=== PATIENT | female | born 1990 | race Caucasian/White ===

== ENCOUNTER 2016-10-11 14:50 | Emergency (ER) | payer SELFPAY ==
[2016-10-11 15:40] VITALS: RESP 16; TEMP 98.4
--- NOTE | 2016-10-11 16:01 | DI ---
XR WRIST COMPLETE MIN 3VW,10/11/2016 3:02 PM: Clinical History: Status post fall Previous Exam: None at this facility. Findings: 3 views of the left wrist are obtained, and demonstrate anatomic alignment without fractures. Surroun ding soft tissues are unremarkable. Impression: No fracture. Note: If pain persists or worsens, recommend followup imaging in 7-10 days to rule out an occult frac ture.
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
== END 2016-10-11 16:15 | disposition home or self-care (01) ==
LOC: ER 14:50
DX: S63.502A Unspecified sprain of left wrist, initial encounter (principal); W01.0XXA Fall on same level from slipping, tripping and stumbling without subsequent striking against object, initial encounter
CPT/HCPCS: 29130; 73110; 99282; 99283

== ENCOUNTER 2017-12-21 02:22 | Inpatient (IN) ==
[2017-12-21] MEDS ORDERED: ONDANSETRON 4 MG/2 ML VIAL IVP ONE (02:39)
[2017-12-21] MEDS ORDERED: MORPHINE SULFATE 2 MG/1 ML IVP ONE (02:39)
[2017-12-21] MEDS ORDERED: Sodium Chloride 0.9% 1,000 ML PRIMARY IV ONE (02:39)
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
[2017-12-21 02:51] VITALS: RESP 20
[2017-12-21 03:16] LABS: BASOPHILS # (AUTO) 0.04 10*3/UL; BASOPHILS % (AUTO) 0.2 % (0-1); EOSINOPHILS # (AUTO) 0.06 10*3/UL; EOSINOPHILS % (AUTO) 0.4 % (0-8); Hematocrit [HCT] 42.3 % (37.0-47.0); LYMPHOCYTES # (AUTO) 3.26 10*3/uL; MEAN CORPUSCULAR HEMOGLOBIN 30.9 PG (27-31); MEAN CORPUSCULAR HGB CONC 35.5 g/dL (33-37); MEAN CORPUSCULAR VOLUME 87.2 FL (81-99); MEAN PLATELET VOLUME 9.6 FL (7.4-12.2); MONOCYTES # (AUTO) 1.21 10*3/UL (0.3-0.8); MONOCYTES % (AUTO) 7.4 % (5-15); NEUTROPHILS # (AUTO) 11.84 10*3/UL; NEUTROPHILS % (AUTO) 71.9 % (50-80); RED BLOOD COUNT 4.85 10^6/uL (4.20-5.40)
[2017-12-21 03:21] LABS: PLATELET MORPHOLOGY COMMENT NORMAL MORPHOLOGY (NORM); RBC MORPHOLOGY COMMENT NORMAL MORPHOLOGY (NORM); WBC MORPHOLOGY COMMENT NORMAL MORPHOLOGY (NORM)
[2017-12-21 03:25] LABS: BLOOD UREA NITROGEN 8 mg/dL (7-22); BUN/CREATININE RATIO 11.42 (6-20); LIPASE 141 IU/L (23-300); SERUM ALBUMIN 4.8 g/dL (3.5-4.8)
[2017-12-21] MEDS ORDERED: MORPHINE SULFATE 4 MG/1 ML IVP ONE (04:12)
--- NOTE | 2017-12-21 04:26 | DI ---
EXAM: CT Abdomen and Pelvis With Intravenous Contrast CLINICAL HISTORY: Right upper quadrant abdominal pain TECHNIQUE: Axial computed tomography images of the abdomen and pelvis with intravenous contrast. COMPARISON: 08/04/2012 FINDINGS: Lung bases: Unremarkable. No mass. No consolidation. ABDOMEN: Liver: Unremarkable. No mass. Gallbladder and bile ducts: The gallbladder is mildly distended. No calcified stones. No ductal dilation. Pancreas: Unremarkable. No mass. No ductal dilation. Spleen: Unremarkable. No splenomegaly. Adrenals: Unremarkable. No mass. Kidneys and ureters: Unremarkable. No solid mass. No hydronephrosis. Stomach and bowel: Unremarkable. No obstruction. No mucosal thickening. PELVIS: Appendix: A normal caliber appendix is noted in the right lower quadrant. Bladder: Unremarkable. No mass. Reproductive: There is been interval hysterectomy when compared to previous exam. ABDOMEN and PELVIS: Intraperitoneal space: Unremarkable. No free air. No significant fluid collection. Bones/joints: No acute fracture. No dislocation. Soft tissues: Unremarkable. Vasculature: Unremarkable. No abdominal aortic aneurysm. Lymph nodes: Unremarkable. No enlarged lymph nodes. IMPRESSION: Negative CT examination of the abdomen and pelvis without identifiable CT findings to suggest the cause of the patient's clinical symptoms.
[2017-12-21 04:54] LABS: BILIRUBIN,URINE NEGATIVE (NEG); CLARITY,URINE CLEAR (CLEAR); COLOR,URINE YELLOW (Y); GLUCOSE, URINE (UA) NEGATIVE (NEG); OCCULT BLOOD,URINE Trace-intact (NEG); PROTEIN,URINE TRACE mg/dl (NEG); UROBILINOGEN,URINE 0.2 EU/dL (0.2)
[2017-12-21 05:00] LABS: BACTERIA,URINE FEW; SQUAMOUS EPITHELIAL CELL,UR MANY; URINE SAMPLE TYPE CLEAN CATCH URINE; URINE SPECIFIC GRAVITY - MAN > 1.050
[2017-12-21 05:01] LABS: OPIATE SCREEN,URINE POSITIVE (NEG)
[2017-12-21 05:02] LABS: AMPHETAMINE SCREEN POSITIVE (NEG); CANNABINOID SCREEN,URINE POSITIVE (NEG); COCAINE SCREEN NEGATIVE (NEG); METHADONE URINE SCREEN NEGATIVE (NEG); METHAMPHETAMINES SCREEN,URINE POSITIVE (NEG)
[2017-12-21] MEDS ORDERED: HYDROmorphone 2 MG/1 ML IVP ONE (05:15)
[2017-12-21] MEDS ORDERED: Ertapenem Inj 1 GM in Sodium Chloride 0.9% 100 ML IV ONE (05:20)
[2017-12-21] MEDS ORDERED: HYDROmorphone 2 MG/1 ML IVP PRN (05:48)
[2017-12-21] MEDS ORDERED: Sodium Chloride 0.9% 1,000 ML PRIMARY IV SCH (06:00)
[2017-12-21] MEDS: MORPHINE SULFATE 2 MG/1 ML IVP PRN ×2 (08:03→09:59)
--- NOTE | 2017-12-21 08:10 | DI ---
US Abdomen Complete,12/21/2017 5:48 AM: Clinical History: Cholecystitis. Previous Exam: CT abdomen pelvis performed December 21, 2017 . Findings: multiple grayscale and color Doppler sonographic images obtained through the abdomen, and demonstrate normal hepatic parenchyma. The right kidney measures 10.7 cm in length without hydronephrosis nor nephrolithiasis. The gallbladder appears grossly normal the gallbladder wall measuring 2 mm and no visible stone. The common bile duct measures 3 mm. The spleen is normal measuring 10 cm in long axis. The left kidney is also normal measuring 12.4 cm in length without hydronephrosis nor nephrolithiasis Impression: No acute disease.
[2017-12-21 09:21] LABS: BASOPHILS # (AUTO) 0.02 10*3/UL; BASOPHILS % (AUTO) 0.1 % (0-1); EOSINOPHILS # (AUTO) 0.14 10*3/UL; Hematocrit [HCT] 40.7 % (37.0-47.0); Hemoglobin [HGB] 14.2 g/dL (12.0-16.0); LYMPHOCYTES # (AUTO) 2.91 10*3/uL; MEAN CORPUSCULAR HEMOGLOBIN 30.7 PG (27-31); MEAN CORPUSCULAR HGB CONC 34.9 g/dL (33-37); MEAN CORPUSCULAR VOLUME 88.1 FL (81-99); MEAN PLATELET VOLUME 9.4 FL (7.4-12.2); MONOCYTES # (AUTO) 0.94 10*3/UL (0.3-0.8); MONOCYTES % (AUTO) 6.9 % (5-15); NEUTROPHILS # (AUTO) 9.65 10*3/UL; NEUTROPHILS % (AUTO) 70.5 % (50-80); RED BLOOD COUNT 4.62 10^6/uL (4.20-5.40)
[2017-12-21 09:25] LABS: PLATELET MORPHOLOGY COMMENT NORMAL MORPHOLOGY (NORM); RBC MORPHOLOGY COMMENT NORMAL MORPHOLOGY (NORM); WBC MORPHOLOGY COMMENT NORMAL MORPHOLOGY (NORM)
--- NOTE | 2017-12-21 09:56 | CONSULT ---
Consult Note - Consult Consult Date: 12/21/17 Reason for Consult: PreOp Consulation : General Surgery Requesting Physician: Dr. Post, Dr. Juarez. Primary Care Provider: Honey Poe MD - History of Present Illness History of Present Illness: The patient is a 27-year-old female who reports yesterday all day long she had diarrhea. She then had nausea and vomiting and that was followed by right upper quadrant abdominal pain about 6 PM last night. She reports the pain is superficial. It goes up under her breast. It does not go around to her back. She presented to the emergency room for the same. She was given some narcotics in the emergency room. They could not get her pain controlled. She had a CT scan of her abdomen and pelvis last night which was unremarkable. She had a white count elevation at 16,500. This morning she had an ultrasound which shows a normal gallbladder. The wall was 2 mm thick and the common bile duct is 3 mm in size. There are no gallstones. 5 hours after her initial lab work her white count is down to 13,700 with hydration. Her liver function tests, amylase, and lipase are normal. Patient denies any prior such pain however in [address] abdomen and pelvis, gallbladder ultrasound, and HIDA scan all of which were unremarkable. Her gallbladder ejection fraction was 78% on the HIDA scan. Patient admits to smoking marijuana and a pack of cigarettes a day. Her tox screen however is positive for opiates as well as amphetamines. She denies any amphetamine use and says she is on probation for the same. Review of Systems - Gastrointestinal Gastrointestinal / Abdominal: REPORTS: Negative System Review, Nausea, Vomiting , Diarrhea, Abdominal Pain, Bloody Stool, Poor Appetite, Regurgitation, Other, See HPI. DENIES: Constipation, Heartburn, Bloating, Lactose Intolerance, Melena , Bright Red Blood per Rectum Past Medical History Medical History: Nephrotic syndrome. Depression. Anxiety. History of cigarette abuse. History of drug use. History of hepatitis C. Surgical History: Hysterectomy. Tubal ligation. 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 On probation for the same. Denies use at this time.) Medication / Allergies Home Medications: Home Medications 3 Medication Instructions Recorded Confirmed Type Citalopram HBr [Celexa] 20 mg PO DAILY 12/21/17 12/21/17 History Hydralazine HCl 25 mg PO DAILY 12/21/17 12/21/17 History Allergies/Adverse Reactions: Allergies 3 Allergy/AdvReac Type Severity Reaction Status Date / Time Penicillins Allergy Anaphylaxis Verified 12/21/17 07:19 Results - Labs CBC and BMP: 12/21/17 09:16 12/21/17 03:08 - Imaging Status: Image Reviewed by Me, Report Reviewed by Me Exam - Vitals Vital Signs: Vital Signs Temperature 97.6 F Temperature Source Temporal Artery Scan Pulse Rate [Pulse Oximeter] 102 Respiratory Rate 20 Blood Pressure [Left Arm] 132/83 Pulse Ox 93 Oxygen Delivery Method Room Air Height 5 ft 2 in Weight 190 lb - General General Appearance: Cooperative, Mild Distress, Disheveled, Obese - Respiratory Respiratory Exam: POSITIVE: Clear to Auscultation - Bilaterally, Breathing Non Labored - Cardiovascular Cardiovascular Exam: POSITIVE: RRR, No Murmur - GI/Abdominal GI/Abdominal Exam: POSITIVE: Normal Bowel Sounds, Non Distended, Soft, Positive for RUQ Pain Additional GI/Abdominal Exam Details: Right upper quadrant pain to palpation. No peritoneal signs. No mass. - Rectal Rectal Exam: POSITIVE: Deferred - Neurological Neurological Exam: POSITIVE: Alert Assessment and Plan - Patient Problems (1) Right upper quadrant abdominal pain of unknown etiology Current Visit: Yes Status: Acute Priority: Medium Onset Date: 12/20/17 Comment: Etiology unclear. Normal CT scan and ultrasound. Has had a normal HIDA scan in the past. This does not sound like biliary colic. Initially it was diarrhea followed by nausea and vomiting and then abdominal pain. We need to be careful about ordering a HIDA scan at this time as she may have an abnormally depressed ejection fraction secondary to her narcotics. At any case she certainly does not have a surgical abdomen at this time. We will continue hydration, follow her labs and physical exam. I think this is more likely gastroenteritis than anything else. I discussed this with the patient as well as Dr. Juarez. Please call if I can be of further assistance. Code(s): R10.11 - Right upper quadrant pain (2) Nausea, vomiting and diarrhea Current Visit: Yes Status: Acute Priority: Medium Onset Date: 12/20/17 Comment: Continue hydration. Treat appropriately. Code(s): R11.2 - Nausea with vomiting, unspecified; R19.7 - Diarrhea, unspecified
[2017-12-21] MEDS ORDERED: Acetaminophen 1000mg Inj 1,000 MG/100 ML VIAL IV PRN (10:20)
[2017-12-21] MEDS ORDERED: KETOROLAC 30 MG/1 ML VIAL IVP SCH (10:30)
[2017-12-21 11:04] VITALS: BP 121/64; TEMP 97; O2SAT 96
--- NOTE | 2017-12-21 11:33 | PDOC ---
HPI - History of Present Illness History of Present Illness: Final Discharge Diagnosis: Current Visit Problems Problem Status Onset Code Cholecystitis Acute K81.9 Right upper quadrant abdominal pain of unknown etiology Acute 12/20/17 R10.11 Nausea, vomiting and diarrhea Acute 12/20/17 R11.2, R19.7 Diagnostic Data, Laboratory Data, and Procedures of Signifigance: History and Physical pertinent to Admission: The patient is a 27-year-old female who reports yesterday all day long she had diarrhea. She then had nausea and vomiting and that was followed by right upper quadrant abdominal pain about 6 PM last night. She reports the pain is superficial. It goes up under her breast. It does not go around to her back. She presented to the emergency room for the same. She was given some narcotics in the emergency room. They could not get her pain controlled. She had a CT scan of her abdomen and pelvis last night which was unremarkable. She had a white count elevation at 16,500. This morning she had an ultrasound which shows a normal gallbladder. The wall was 2 mm thick and the common bile duct is 3 mm in size. There are no gallstones. 5 hours after her initial lab work her white count is down to 13,700 with hydration. Her liver function tests, amylase, and lipase are normal. Course of Hospitalization: This very nice 27-year-old female who states that she had diarrhea yesterday and then nausea and vomiting had some right upper quadrant pain and was seen in the ER. CT scan and abdominal ultrasound are remarkable. General surgery Dr. Chun consult on the patient did not think this was a surgical issue or her colic pain. Her white count was 16,000 decreased to 13,000 after 4 hours of hydration. She was given opioids in the emergency room per urine tox screen was also positive for meth and marijuana. She states that she does not use meth and maybe they put it in "in her marijuana" most likely these are side effects of breath nausea and the diarrhea as I've explained to her and read them off of [facility]. She is also on Bupronorphene with chronic pain specialist had written for IV Tylenol and Toradol for pain. Told her we would continue hydration and potassium replacement since it was barely abnormal. About 5 minutes after me and to nurses (room she called one of the nurses and stated that she wanted to leave we told her that she should finish her IV fluids but did not want to wait I gave her 1 dose of by mouth potassium and I told we've told her to follow-up with her primary care physician Dr. burger at this point in time patient does not want to stay anymore and is walking out without wanting to finish her IV fluids On the date of discharge, the patient was examined: Gen.: No acute distress, alert, nontoxic Heart: Regular rate and rhythm, no murmurs, clicks, gallops, or rubs Lungs: Clear to auscultation bilaterally, breathing is nonlabored Abdomen/GI: Normal tones on auscultation, soft, nontender, nondistended Musculoskeletal/extremities: No clubbing, cyanosis, or edema Vitals reviewed and are listed below Vital Signs (24 hrs) Temp Pulse Resp BP Pulse Ox 12/21/17 09:00 97.0 F 70 20 121/64 96 12/21/17 02:22 97.6 F 102 H 20 132/83 93 Assessment and Plan: 1. As per discharge assessments above 2. Disposition: Home patient was advised to stay for IV fluids 3. Condition on discharge, stable and improved. 4. Diet: regular diet 5. Activities: resume normal activities 6. Follow-Up: 1. PCP 2. 7. Medications at the Time of Discharge: Home Medications 3 Medication Instructions Recorded Confirmed Type Citalopram HBr [Celexa] 20 mg PO DAILY 12/21/17 12/21/17 History Patient received 40 of potassium by mouth 1 8. Time, care, counseling and coordination of care for this discharge is greater than 30 minutes. Past Medical History Medical History: Nephrotic syndrome. Depression. Anxiety. History of cigarette abuse. History of drug use. History of hepatitis C. Surgical History: Hysterectomy. Tubal ligation. 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 On probation for the same. Denies use at this time.) Medication / Allergies Home Medications: Home Medications 3 Medication Instructions Recorded Confirmed Type Citalopram HBr [Celexa] 20 mg PO DAILY 12/21/17 12/21/17 History Allergies/Adverse Reactions: Allergies 3 Allergy/AdvReac Type Severity Reaction Status Date / Time Penicillins Allergy Anaphylaxis Verified 12/21/17 07:19 Exam - Vitals Vital Signs: Vital Signs Temperature 97.0 F Temperature Source Temporal Artery Scan Pulse Rate [Pulse Oximeter] 70 Respiratory Rate 20 Blood Pressure [Left Arm] 121/64 Pulse Ox 96 Oxygen Delivery Method Room Air Height 5 ft 2 in Weight 190 lb Results - Labs CBC and BMP: 12/21/17 09:16 12/21/17 03:08
--- NOTE | 2017-12-21 11:33 | DCSUMMARY ---
Hospitalization Summary Hospital Course: Please see my H&P admit discharge same day Exam - Vitals Vital Signs: Vital Signs Temperature 97.0 F Temperature Source Temporal Artery Scan Pulse Rate [Pulse Oximeter] 70 Respiratory Rate 20 Blood Pressure [Left Arm] 121/64 Pulse Ox 96 Oxygen Delivery Method Room Air Height 5 ft 2 in Weight 190 lb
[2017-12-21] MEDS ORDERED: POTASSIUM CHLORIDE 20 MEQ TAB PO ONE (11:36)
[2017-12-22] MEDS ORDERED: Ertapenem Inj 1 GM in Sodium Chloride 0.9% 100 ML IV SCH (06:00)
== END 2017-12-21 12:21 | disposition home or self-care (01) | DRG 446 ==
LOC: ER 02:22 → MED/SURG 05:47
PROVIDERS: ADMIT Internal Medicine; ATTEND Internal Medicine